=== PATIENT | male | born 2000 | race Caucasian/White ===

== ENCOUNTER 2018-05-07 11:52 | Emergency (ER) | payer BC ==
[~2018-05-07] VITALS: Ht 172.7 cm; Wt 54.4 kg
[~2018-05-07 11:52] MED LIST: ALBU5SOL
--- NOTE | 2018-05-07 11:52 | NUR ---
Placed in room [address] . [address] on [address] recording monitor, blood pressure machine and pulse oximeter. To gown for exam. Side rails up.
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
[2018-05-07] MEDS ORDERED: ONDANSETRON 4 MG ODT TAB PO ONE (12:00)
[2018-05-07 12:03] VITALS: BP_SYST 135
--- NOTE | 2018-05-07 12:05 | NUR ---
Pt taken to radiology via gurney in stable condition.
--- NOTE | 2018-05-07 12:36 | NUR ---
Father at bedside.
[2018-05-07] MEDS ORDERED: IBUPROFEN 800 MG TABLET PO ONE (12:45)
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
[2018-05-07 14:15] VITALS: BP_SYST 118
--- NOTE | 2018-05-07 14:15 | NUR ---
Patient given written and verbal discharge instructions and verbalizes understanding. ER MD discussed with patient the results and treatment provided. Patient in stable condition. ID arm band removed. Rx of Motrin, Tramadol given. Patient educated on pain management and to follow up with PMD. Pain Scale 0/10. Opportunity for questions provided and answered. Medication side effect fact sheet provided.
== END 2018-05-07 14:15 | disposition home or self-care (01) ==
LOC: SED 11:52
DX: S06.0X0A Concussion without loss of consciousness, initial encounter (principal); Y04.0XXA Assault by unarmed brawl or fight, initial encounter; Y93.66 Activity, soccer; Y92.89 Other specified places as the place of occurrence of the external cause; Y99.8 Other external cause status
CPT/HCPCS: 70450; 70486; 99284; Q0162